=== PATIENT | male | born 1955 | race Two or more races ===

== ENCOUNTER 2024-05-30 08:30 | Inpatient (IN) | payer OTHER ==
[~2024-05-30] VITALS: Ht 185.4 cm; Wt 77.1 kg
[2024-05-30] MEDS ORDERED: PLAVIX75 MG PO (09:01)
[2024-05-30] MEDS ORDERED: ABATINEX680 MG PO (09:01)
[2024-05-30] MEDS ORDERED: CARVEDILOL ER40 MG PO (09:02)
[2024-05-30] MEDS ORDERED: ATORVASTATIN CA80 MG PO (09:03)
[2024-05-30] MEDS ORDERED: LOTENSIN HCT 11 EACH PO (09:04)
[2024-05-30] MEDS ORDERED: ETODOLAC300 MG PO (09:04)
[2024-05-30] MEDS ORDERED: TRIJARDY XR 121 EACH PO (09:05)
[2024-05-30] MEDS ORDERED: PEPCID AC20 MG PO (09:05)
[2024-05-30] MEDS ORDERED: KETOROLAC TROMETHAMINE 60 MG VIAL IM ONE ×2 (09:44→09:45)
[2024-05-30] MEDS ORDERED: TAMSULOSIN HCL 0.4 MG CAP PO ONE ×2 (09:44→09:45)
[2024-05-30] MEDS ORDERED: FAMOtidine 10 MG/ML (4ML VIAL) IV ONE (09:45)
[2024-05-30] MEDS ORDERED: FAMOTIDINE/PF 20 MG/2 ML VIAL ONE ×2 (09:45→17:25)
[2024-05-30] MEDS ORDERED: CEFTRIAXONE SODIUM 1,000 MG VIAL IV ONE (09:45)
[2024-05-30 10:19] LABS: HEMATOCRIT 34.9 % (39.0-48.0); HEMOGLOBIN 11.7 g/dL (13-16.00); MEAN CELL VOLUME 86.9 fL (80.0-100.00); MEAN CORPUSCULAR HEMOGLOBIN 29.2 pg (27.00-32.0); MEAN CORPUSCULAR HGB CONC 33.7 g/dl (32.0-36.0); PLATELET COUNT 150 K/uL (150-450); RED BLOOD COUNT 4.02 M/uL (4.00-6.00); RED CELL DISTRIBUTION WIDTH 13.7 % (11.5-14.5)
[2024-05-30 10:48] LABS: INR 0.98; PROTHROMBIN TIME 10.7 SECONDS (9.0-11.5)
[2024-05-30 11:17] LABS: PH,URINE 5.5 (5.0-8.0); URINE APPEARANCE Clear; URINE BILIRRUBIN Negative (NEGATIVE); URINE BLOOD Negative; URINE COLOR Yellow; URINE KETONE Negative (NEGATIVE); URINE LEUKOCYTE Negative; URINE NITRATE Negative; URINE PROTEIN Negative (NEGATIVE); URINE UROBILINOGEN 0.2 E.U./dl
[2024-05-30 11:20] LABS: URINE BACTERIA 4.8 uL (0.0-1933)
[2024-05-30 11:24] LABS: URINE EPITHELIAL CELLS 0.7 uL (0.0-38.8); URINE GLUCOSE >=1000 MG/DL (NEGATIVE); URINE RBC 1.7 uL (0.0-20.8); URINE WBC 1.1 uL (0.0-23.2)
[2024-05-30 11:32] LABS: BILIRUBIN TOTAL 0.82 mg/dL (0.3-1.2); CALCIUM 8.5 mg/dL (8.5-10.1); CREATININE SERUM 1.41 mg/dL (0.70-1.30); GFR 49.84; GLOBULINA 4.3 G/DL (2.4-3.5); POTASSIUM 4.48 mEq/L (3.5-5.1); TOTAL PROTEIN 7.3 gm/dL (6.4-8.2)
[2024-05-30] MEDS ORDERED: INSULIN REGULAR, HUMAN 1,000 UNIT/10 ML UNITS SUBCUTANEO ONE (12:15)
[2024-05-30] MEDS ORDERED: FAMOTIDINE/PF 20 MG in 0.9 % SODIUM CHLORIDE 8 ML IV PUSH SCH (16:47)
[2024-05-30] MEDS ORDERED: MORPHINE SULFATE 4 MG/ML VIAL IV PRN (17:00)
[2024-05-30] MEDS ORDERED: 0.9 % SODIUM CHLORIDE 1,000 ML IV SCH (17:00)
[2024-05-30] MEDS ORDERED: DEXTROSE 50 % IN WATER 0.5 G/ML DISP.SYRIN IV PRN (17:00)
[2024-05-30] MEDS ORDERED: INSULIN LISPRO 1,000 UNIT/10 ML UNITS SUBCUTANEO PRN (17:00)
[2024-05-30] MEDS ORDERED: CARVEDILOL 12.5 MG TABLET PO SCH (17:03)
[2024-05-30] MEDS ORDERED: PIPERACILLIN/TAZOBACTAM SODIUM 3.375 GM VIAL IV ONE (17:24)
[2024-05-30] MEDS ORDERED: PIPERACILLIN/TAZOBACTAM SODIUM 3.375 GM in 0.9 % SODIUM CHLORIDE 100 ML IV SCH (18:00)
[2024-05-30] MEDS ORDERED: MORPHINE SULFATE 2 MG/ML CARTRIDGE IV PRN (18:15)
[2024-05-30 18:50] VITALS: BP 115/71; O2SAT 97
[2024-05-31 02:19] VITALS: BP 107/64; O2SAT 97
[2024-05-31 08:00] VITALS: BP 110/68; O2SAT 97
[2024-05-31 16:00] VITALS: BP 103/65; O2SAT 96
[2024-06-01] VITALS: BP 119/67; O2SAT 95
[2024-06-01 07:35] LABS: HEMATOCRIT 35.3 % (39.0-48.0); HEMOGLOBIN 11.9 g/dL (13-16.00); MEAN CELL VOLUME 86.7 fL (80.0-100.00); MEAN CORPUSCULAR HEMOGLOBIN 29.2 pg (27.00-32.0); MEAN CORPUSCULAR HGB CONC 33.7 g/dl (32.0-36.0); PLATELET COUNT 171 K/uL (150-450); RED BLOOD COUNT 4.07 M/uL (4.00-6.00); RED CELL DISTRIBUTION WIDTH 14.1 % (11.5-14.5)
[2024-06-01 08:00] VITALS: BP 111/64; O2SAT 96
[2024-06-01 08:09] LABS: ALBUMIN 2.8 gm/dL (3.4-5.0); BILIRUBIN TOTAL 0.67 mg/dL (0.3-1.2); BILIRUBIN,CONJUGATED 0.29 mg/dL (0.0-0.2); BILIRUBIN,UNCONJUGATED 0.38 mg/dL (0.0-0.6); CREATININE SERUM 1.26 mg/dL (0.70-1.30); GFR 56.74; GLOBULINA 4.1 G/DL (2.4-3.5); POTASSIUM 5.33 mEq/L (3.5-5.1); TOTAL PROTEIN 6.9 gm/dL (6.4-8.2)
[2024-06-01 16:00] VITALS: BP 126/77; O2SAT 96
[2024-06-02] VITALS: BP 123/65; O2SAT 96
[2024-06-02 07:23] LABS: HEMATOCRIT 34.6 % (39.0-48.0); HEMOGLOBIN 11.8 g/dL (13-16.00); MEAN CELL VOLUME 86.5 fL (80.0-100.00); MEAN CORPUSCULAR HEMOGLOBIN 29.6 pg (27.00-32.0); MEAN CORPUSCULAR HGB CONC 34.2 g/dl (32.0-36.0); PLATELET COUNT 177 K/uL (150-450); RED CELL DISTRIBUTION WIDTH 14.1 % (11.5-14.5)
[2024-06-02 07:32] LABS: ALBUMIN 2.7 gm/dL (3.4-5.0); BILIRUBIN TOTAL 0.6 mg/dL (0.3-1.2); BILIRUBIN,CONJUGATED 0.22 mg/dL (0.0-0.2); BILIRUBIN,UNCONJUGATED 0.38 mg/dL (0.0-0.6); C-REACTIVE PROTEIN 12.2 MG/DL (0.00-0.29); CALCIUM 8.4 mg/dL (8.5-10.1); CREATININE SERUM 0.94 mg/dL (0.70-1.30); GFR 79.57; GLOBULINA 4.3 G/DL (2.4-3.5); PHOSPHOROUS 2.8 mg/dL (2.5-4.9); POTASSIUM 4.66 mEq/L (3.5-5.1)
[2024-06-02 09:00] VITALS: BP 133/83; O2SAT 98
[2024-06-03] VITALS: BP 144/65; O2SAT 98
[2024-06-03 08:00] VITALS: BP 109/57; O2SAT 100
[2024-06-03 16:19] VITALS: BP 106/53; O2SAT 95
[2024-06-03] MEDS ORDERED: ISOPROPYL ALCOHOL 30 ML OUNCE TOP ONE (20:00)
[2024-06-03] MEDS ORDERED: SUGAMMADEX SODIUM 200 MG/2 ML VIAL IV ONE (22:25)
[2024-06-03] MEDS ORDERED: KETOROLAC TROMETHAMINE 30 MG VIAL IV PRN (22:30)
[2024-06-03] MEDS ORDERED: ONDANSETRON HCL 2 MG/ML VIAL IV PRN (22:30)
[2024-06-03] MEDS ORDERED: 0.9 % SODIUM CHLORIDE 1,000 ML IV SCH (23:00)
[2024-06-04] MEDS ORDERED: PIPERACILLIN/TAZOBACTAM SODIUM 3.375 GM VIAL IV ONE (00:36)
[2024-06-04] MEDS ORDERED: MORPHINE SULFATE 4 MG/ML VIAL IV PRN (02:45)
[2024-06-04 03:30] VITALS: BP 139/83; O2SAT 98
[2024-06-04 08:23] VITALS: BP 71/46; O2SAT 97
[2024-06-04] MEDS ORDERED: 0.9 % SODIUM CHLORIDE 1,000 ML IV SCH (08:30)
[2024-06-04 09:23] VITALS: BP 97/60; O2SAT 97
[2024-06-04 13:32] LABS: MEAN CELL VOLUME 87.4 fL (80.0-100.00); MEAN CORPUSCULAR HGB CONC 32.8 g/dl (32.0-36.0); PLATELET COUNT 141 K/uL (150-450); RED BLOOD COUNT 2.46 M/uL (4.00-6.00); RED CELL DISTRIBUTION WIDTH 13.7 % (11.5-14.5)
[2024-06-04 13:39] LABS: HEMATOCRIT 21.5 % (39.0-48.0); MEAN CORPUSCULAR HEMOGLOBIN 28.8 pg (27.00-32.0)
[2024-06-04 13:40] LABS: HEMOGLOBIN 7.1 g/dL (13-16.00)
[2024-06-04 14:19] LABS: ALBUMIN 2.3 gm/dL (3.4-5.0); BILIRUBIN TOTAL 0.8 mg/dL (0.3-1.2); CREATININE SERUM 2.17 mg/dL (0.70-1.30); GFR 30.3; GLOBULINA 3.8 G/DL (2.4-3.5); POTASSIUM 5.31 mEq/L (3.5-5.1); TOTAL PROTEIN 6.1 gm/dL (6.4-8.2)
[2024-06-04] MEDS ORDERED: MEROPENEM 500 MG/VIAL VIAL IV SCH (17:00)
[2024-06-04 18:00] VITALS: BP 81/48; O2SAT 97
[2024-06-04] MEDS ORDERED: NOREPINEPHRINE BITARTRATE 4 MG in DEXTROSE 5 % IN WATER 250 ML IV SCH (19:30)
[2024-06-04] MEDS ORDERED: PHYTONADIONE 10 MG/ML AMPUL IV ONE (20:15)
[2024-06-05] VITALS (8 sets, daily range): BP systolic 101–150; BP diastolic 58–73; O2SAT 96–99
[2024-06-05] MEDS ORDERED: 0.9 % SODIUM CHLORIDE 1,000 ML IV ONE (06:15)
[2024-06-05] MEDS ORDERED: CHLORHEXIDINE GLUCONATE 120 ML BOTTLE TOP ONE (11:19)
[2024-06-05 12:49] LABS: INR 1.25; PARTIAL THROMBOPLASTIN TIME 26.8 SECONDS (22.0-34.0); PROTHROMBIN TIME 13.4 SECONDS (9.0-11.5)
[2024-06-05 13:03] LABS: MEAN CELL VOLUME 85.9 fL (80.0-100.00); MEAN CORPUSCULAR HGB CONC 34.7 g/dl (32.0-36.0); RED BLOOD COUNT 2.59 M/uL (4.00-6.00); RED CELL DISTRIBUTION WIDTH 14.5 % (11.5-14.5)
[2024-06-05 13:10] LABS: MEAN CORPUSCULAR HEMOGLOBIN 29.7 pg (27.00-32.0)
[2024-06-05 13:11] LABS: HEMATOCRIT 22.3 % (39.0-48.0)
[2024-06-05 13:12] LABS: HEMOGLOBIN 7.7 g/dL (13-16.00); PLATELET COUNT 90 K/uL (150-450)
[2024-06-05 13:14] LABS: ALBUMIN 2.4 gm/dL (3.4-5.0); BILIRUBIN TOTAL 1.16 mg/dL (0.3-1.2); CALCIUM 7.5 mg/dL (8.5-10.1); GLOBULINA 4.1 G/DL (2.4-3.5); MAGNESIUM 1.7 mg/dL (1.8-2.4); PHOSPHOROUS 5.2 mg/dL (2.5-4.9); POTASSIUM 4.79 mEq/L (3.5-5.1); TOTAL PROTEIN 6.5 gm/dL (6.4-8.2)
[2024-06-05 13:50] LABS: GFR 11.73
[2024-06-05 13:51] LABS: CREATININE SERUM 4.94 mg/dL (0.70-1.30)
[2024-06-05] MEDS ORDERED: SODIUM BICARBONATE 1 MEQ/ML DISP.SYRIN 50ML IV ONE (14:15)
[2024-06-05] MEDS ORDERED: PHYTONADIONE 10 MG/ML AMPUL IV ONE (14:15)
[2024-06-05] MEDS ORDERED: AMINOCAPROIC ACID 250 MG/ML VIAL IV STA (14:36)
[2024-06-05] MEDS ORDERED: MORPHINE SULFATE 2 MG/ML CARTRIDGE IV PRN (14:48)
[2024-06-05] MEDS ORDERED: AMINOCAPROIC ACID 250 MG/ML VIAL IV SCH (16:00)
[2024-06-05] MEDS ORDERED: MEROPENEM 500 MG/VIAL VIAL IV SCH (17:00)
[2024-06-05] MEDS ORDERED: INSULIN GLARGINE,HUM.REC.ANLOG 1,000 UNITS/10 ML UNITS SUBCUTANEO SCH (21:00)
[2024-06-05] MEDS ORDERED: PANTOPRAZOLE SODIUM 40 MG/VIAL VIAL IV PUSH SCH (21:00)
[2024-06-06 01:20] VITALS: BP 132/57; O2SAT 97
[2024-06-06 04:00] VITALS: BP 138/77; O2SAT 95
[2024-06-06 07:20] VITALS: BP 130/70; O2SAT 97
[2024-06-06 08:19] LABS: HEMATOCRIT 28.3 % (39.0-48.0); MEAN CORPUSCULAR HGB CONC 33.7 g/dl (32.0-36.0); RED BLOOD COUNT 3.29 M/uL (4.00-6.00); RED CELL DISTRIBUTION WIDTH 14.9 % (11.5-14.5)
[2024-06-06 08:58] LABS: ALBUMIN 2.1 gm/dL (3.4-5.0); BILIRUBIN TOTAL 1.26 mg/dL (0.3-1.2); CALCIUM 7.2 mg/dL (8.5-10.1); GLOBULINA 3.9 G/DL (2.4-3.5); POTASSIUM 4.17 mEq/L (3.5-5.1)
[2024-06-06] MEDS ORDERED: PHYTONADIONE 10 MG/ML AMPUL IM SCH (09:00)
[2024-06-06 09:24] LABS: MEAN CORPUSCULAR HEMOGLOBIN 29.1 pg (27.00-32.0)
[2024-06-06 09:30] LABS: GFR 7.28
[2024-06-06 09:32] LABS: HEMOGLOBIN 9.6 g/dL (13-16.00); PLATELET COUNT 91 K/uL (150-450)
[2024-06-06 09:33] LABS: CREATININE SERUM 7.47 mg/dL (0.70-1.30)
[2024-06-06 12:00] VITALS: BP 127/67; O2SAT 96
[2024-06-06 15:29] VITALS: BP 128/65; O2SAT 98
[2024-06-06 20:00] VITALS: BP 125/68; O2SAT 96
[2024-06-06] MEDS ORDERED: HEPARIN SODIUM,PORCINE 5,000 UNITS/ML VIAL ONE (21:16)
[2024-06-07] VITALS (7 sets, daily range): BP systolic 127–143; BP diastolic 68–74; O2SAT 95–100
[2024-06-07 07:34] LABS: HEMATOCRIT 25.4 % (39.0-48.0); MEAN CELL VOLUME 84.4 fL (80.0-100.00); RED BLOOD COUNT 3.01 M/uL (4.00-6.00); RED CELL DISTRIBUTION WIDTH 15.6 % (11.5-14.5)
[2024-06-07 07:46] LABS: HEMOGLOBIN 8.9 g/dL (13-16.00); MEAN CORPUSCULAR HEMOGLOBIN 29.5 pg (27.00-32.0); PLATELET COUNT 95 K/uL (150-450)
[2024-06-07 07:54] LABS: CALCIUM 6.7 mg/dL (8.5-10.1); GFR 7.17; POTASSIUM 4.03 mEq/L (3.5-5.1)
[2024-06-07 08:40] LABS: CREATININE SERUM 7.57 mg/dL (0.70-1.30)
[2024-06-08 04:00] VITALS: BP 132/67; O2SAT 97
[2024-06-08] MEDS ORDERED: MORPHINE SULFATE 2 MG/ML CARTRIDGE IV PRN (04:15)
[2024-06-08 04:22] LABS: HEMATOCRIT 26.8 % (39.0-48.0); HEMOGLOBIN 9.5 g/dL (13-16.00); MEAN CELL VOLUME 84.3 fL (80.0-100.00); MEAN CORPUSCULAR HEMOGLOBIN 29.9 pg (27.00-32.0); MEAN CORPUSCULAR HGB CONC 35.5 g/dl (32.0-36.0); PLATELET COUNT 131 K/uL (150-450); RED BLOOD COUNT 3.17 M/uL (4.00-6.00); RED CELL DISTRIBUTION WIDTH 15.7 % (11.5-14.5)
[2024-06-08 04:53] LABS: ALBUMIN 1.8 gm/dL (3.4-5.0); BILIRUBIN TOTAL 0.93 mg/dL (0.3-1.2); CALCIUM 6.6 mg/dL (8.5-10.1); GFR 5.38; GLOBULINA 3.1 G/DL (2.4-3.5); POTASSIUM 3.97 mEq/L (3.5-5.1); TOTAL PROTEIN 4.9 gm/dL (6.4-8.2)
[2024-06-08 04:56] LABS: CREATININE SERUM 9.71 mg/dL (0.70-1.30)
[2024-06-08 07:18] VITALS: BP 139/71; O2SAT 98
[2024-06-08 12:20] VITALS: BP 146/710; O2SAT 100
[2024-06-08 15:24] VITALS: BP 137/74; O2SAT 100
[2024-06-08] MEDS ORDERED: MORPHINE SULFATE 4 MG/ML CARTRIDGE IV PRN (17:44)
[2024-06-08 20:01] VITALS: BP 150/80; O2SAT 97
[2024-06-08 23:38] VITALS: BP 160/82; O2SAT 98
[2024-06-09 04:00] VITALS: BP 154/75; O2SAT 99
[2024-06-09 06:55] LABS: HEMATOCRIT 27.3 % (39.0-48.0); HEMOGLOBIN 9.6 g/dL (13-16.00); MEAN CELL VOLUME 84.7 fL (80.0-100.00); MEAN CORPUSCULAR HEMOGLOBIN 29.9 pg (27.00-32.0); MEAN CORPUSCULAR HGB CONC 35.4 g/dl (32.0-36.0); PLATELET COUNT 155 K/uL (150-450); RED BLOOD COUNT 3.22 M/uL (4.00-6.00); RED CELL DISTRIBUTION WIDTH 15.5 % (11.5-14.5)
[2024-06-09 07:21] VITALS: BP 154/78; O2SAT 97
[2024-06-09 07:46] LABS: ALBUMIN 1.8 gm/dL (3.4-5.0); BILIRUBIN TOTAL 1.51 mg/dL (0.3-1.2); GFR 4.51; GLOBULINA 3.4 G/DL (2.4-3.5); POTASSIUM 4.19 mEq/L (3.5-5.1); TOTAL PROTEIN 5.2 gm/dL (6.4-8.2)
[2024-06-09 07:50] LABS: CREATININE SERUM 11.3 mg/dL (0.70-1.30)
[2024-06-09 07:51] LABS: CALCIUM 6.8 mg/dL (8.5-10.1)
[2024-06-09 12:03] VITALS: BP 146/76; O2SAT 100
[2024-06-09 15:13] VITALS: BP 139/77; O2SAT 99
[2024-06-09 20:00] VITALS: BP 136/78; O2SAT 100
[2024-06-09] MEDS ORDERED: HEPARIN SODIUM,PORCINE 5,000 UNITS/ML VIAL SPEPROC ONE (20:30)
[2024-06-09] MEDS ORDERED: HEPARIN SODIUM,PORCINE 5,000 UNITS/ML VIAL ONE (20:30)
[2024-06-09 23:41] VITALS: BP 151/73; O2SAT 100
[2024-06-10 04:06] VITALS: BP 145/76; O2SAT 98
[2024-06-10 07:44] VITALS: BP 141/70; O2SAT 99
[2024-06-10 08:29] LABS: HEMATOCRIT 26.7 % (39.0-48.0); HEMOGLOBIN 9.2 g/dL (13-16.00); MEAN CELL VOLUME 85.9 fL (80.0-100.00); MEAN CORPUSCULAR HEMOGLOBIN 29.5 pg (27.00-32.0); MEAN CORPUSCULAR HGB CONC 34.4 g/dl (32.0-36.0); PLATELET COUNT 149 K/uL (150-450); RED BLOOD COUNT 3.11 M/uL (4.00-6.00); RED CELL DISTRIBUTION WIDTH 15.7 % (11.5-14.5)
[2024-06-10 09:09] LABS: CALCIUM 7.4 mg/dL (8.5-10.1); GFR 5.4; POTASSIUM 4.64 mEq/L (3.5-5.1)
[2024-06-10 09:21] LABS: CREATININE SERUM 9.67 mg/dL (0.70-1.30)
[2024-06-10 12:00] VITALS: BP 139/73; O2SAT 100
[2024-06-10 16:33] VITALS: BP 133/66; O2SAT 100
[2024-06-10 18:00] VITALS: BP 149/81; O2SAT 96
[2024-06-11 00:29] VITALS: BP 120/70
[2024-06-11 07:18] LABS: ALBUMIN 1.6 gm/dL (3.4-5.0); BILIRUBIN TOTAL 1.09 mg/dL (0.3-1.2); CALCIUM 7.2 mg/dL (8.5-10.1); GFR 5.02; GLOBULINA 3.2 G/DL (2.4-3.5); POTASSIUM 4.35 mEq/L (3.5-5.1); TOTAL PROTEIN 4.8 gm/dL (6.4-8.2)
[2024-06-11 08:03] LABS: CREATININE SERUM 10.3 mg/dL (0.70-1.30)
[2024-06-11 08:45] VITALS: BP 127/79; O2SAT 93
[2024-06-11] MEDS ORDERED: INSULIN LISPRO 1,000 UNIT/10 ML UNITS SUBCUTANEO SCH (11:00)
[2024-06-11 15:24] LABS: CALCIUM 7.3 mg/dL (8.5-10.1); GFR 4.75; POTASSIUM 4.44 mEq/L (3.5-5.1)
[2024-06-11 16:02] LABS: CREATININE SERUM 10.8 mg/dL (0.70-1.30)
[2024-06-11] MEDS ORDERED: HEPARIN SODIUM,PORCINE 5,000 UNITS/ML VIAL ONE (17:14)
[2024-06-11] MEDS ORDERED: HEPARIN SODIUM,PORCINE 5,000 UNITS/ML VIAL IV NR (17:30)
[2024-06-11 17:36] VITALS: BP 141/78; O2SAT 97
[2024-06-11] MEDS ORDERED: MORPHINE SULFATE 2 MG/ML CARTRIDGE IV PRN (18:00)
[2024-06-11] MEDS ORDERED: INSULIN GLARGINE,HUM.REC.ANLOG 1,000 UNITS/10 ML UNITS SUBCUTANEO SCH (21:00)
[2024-06-11 23:57] LABS: INR 1.11; PARTIAL THROMBOPLASTIN TIME 33.4 SECONDS (22.0-34.0)
[2024-06-12] VITALS: BP 116/67; O2SAT 95
[2024-06-12 05:16] LABS: HEMATOCRIT 24.1 % (39.0-48.0); MEAN CELL VOLUME 85.4 fL (80.0-100.00); MEAN CORPUSCULAR HGB CONC 34.5 g/dl (32.0-36.0); PLATELET COUNT 171 K/uL (150-450); RED BLOOD COUNT 2.82 M/uL (4.00-6.00); RED CELL DISTRIBUTION WIDTH 15.6 % (11.5-14.5)
[2024-06-12 05:22] LABS: HEMOGLOBIN 8.3 g/dL (13-16.00); MEAN CORPUSCULAR HEMOGLOBIN 29.4 pg (27.00-32.0)
[2024-06-12 05:45] LABS: ALBUMIN 1.7 gm/dL (3.4-5.0); BILIRUBIN TOTAL 1.04 mg/dL (0.3-1.2); CALCIUM 7.1 mg/dL (8.5-10.1); GLOBULINA 3.4 G/DL (2.4-3.5); MAGNESIUM 1.9 mg/dL (1.8-2.4); PHOSPHOROUS 5.2 mg/dL (2.5-4.9); POTASSIUM 3.7 mEq/L (3.5-5.1); TOTAL PROTEIN 5.1 gm/dL (6.4-8.2)
[2024-06-12 08:17] VITALS: BP 145/87
[2024-06-12 08:19] LABS: C-REACTIVE PROTEIN 14.7 MG/DL (0.00-0.29); GFR 5.88
[2024-06-12 08:21] LABS: CREATININE SERUM 8.99 mg/dL (0.70-1.30)
[2024-06-12] MEDS ORDERED: ACETAMINOPHEN 325 MG TABLET PO PRN (14:15)
[2024-06-12 16:55] VITALS: BP 172/92; O2SAT 96
[2024-06-13] VITALS: BP 142/81; O2SAT 95
[2024-06-13 03:24] LABS: CALCIUM 7.1 mg/dL (8.5-10.1); GFR 5.77; POTASSIUM 3.96 mEq/L (3.5-5.1)
[2024-06-13 03:34] LABS: CREATININE SERUM 9.13 mg/dL (0.70-1.30)
[2024-06-13 03:35] LABS: HEMATOCRIT 24.1 % (39.0-48.0); MEAN CELL VOLUME 85.4 fL (80.0-100.00); MEAN CORPUSCULAR HGB CONC 34.2 g/dl (32.0-36.0); PLATELET COUNT 193 K/uL (150-450); RED BLOOD COUNT 2.83 M/uL (4.00-6.00); RED CELL DISTRIBUTION WIDTH 15.4 % (11.5-14.5)
[2024-06-13 03:36] LABS: HEMOGLOBIN 8.2 g/dL (13-16.00); MEAN CORPUSCULAR HEMOGLOBIN 28.9 pg (27.00-32.0)
[2024-06-13] MEDS ORDERED: CARVEDILOL 12.5 MG TABLET PO SCH (09:00)
[2024-06-13 09:11] VITALS: BP 153/85
[2024-06-13 16:53] VITALS: BP 128/72; O2SAT 96
[2024-06-13] MEDS ORDERED: HEPARIN SODIUM,PORCINE 5,000 UNITS/ML VIAL IV NR (20:00)
[2024-06-13 21:57] LABS: HEMATOCRIT 31.1 % (39.0-48.0); HEMOGLOBIN 10.4 g/dL (13-16.00); MEAN CELL VOLUME 85.7 fL (80.0-100.00); MEAN CORPUSCULAR HEMOGLOBIN 28.5 pg (27.00-32.0); MEAN CORPUSCULAR HGB CONC 33.3 g/dl (32.0-36.0); PLATELET COUNT 154 K/uL (150-450); RED BLOOD COUNT 3.64 M/uL (4.00-6.00)
[2024-06-14 02:11] VITALS: BP 144/75
[2024-06-14 08:52] VITALS: BP 136/75
[2024-06-14] MEDS ORDERED: AMINO ACIDS 1 EACH TABLET PO SCH (09:00)
[2024-06-14 15:59] VITALS: BP 147/87; O2SAT 98
[2024-06-15 02:23] VITALS: BP 134/74; O2SAT 95
[2024-06-15 08:56] VITALS: BP 156/84; O2SAT 95
[2024-06-15 17:35] VITALS: BP 137/68; O2SAT 97
[2024-06-16 02:20] VITALS: BP 153/73
[2024-06-16 06:11] LABS: HEMATOCRIT 27.3 % (39.0-48.0); HEMOGLOBIN 9.4 g/dL (13-16.00); MEAN CELL VOLUME 84.5 fL (80.0-100.00); MEAN CORPUSCULAR HEMOGLOBIN 29.2 pg (27.00-32.0); MEAN CORPUSCULAR HGB CONC 34.6 g/dl (32.0-36.0); PLATELET COUNT 180 K/uL (150-450); RED BLOOD COUNT 3.23 M/uL (4.00-6.00); RED CELL DISTRIBUTION WIDTH 15.3 % (11.5-14.5)
[2024-06-16 07:13] LABS: ALBUMIN 1.8 gm/dL (3.4-5.0); BILIRUBIN TOTAL 0.63 mg/dL (0.3-1.2); CALCIUM 7.3 mg/dL (8.5-10.1); GFR 7.74; GLOBULINA 3.5 G/DL (2.4-3.5); MAGNESIUM 1.7 mg/dL (1.8-2.4); POTASSIUM 4.45 mEq/L (3.5-5.1); TOTAL PROTEIN 5.3 gm/dL (6.4-8.2)
[2024-06-16 08:11] LABS: CREATININE SERUM 7.08 mg/dL (0.70-1.30)
[2024-06-16] MEDS ORDERED: CARVEDILOL 25 MG TABLET PO SCH (09:00)
[2024-06-16 09:18] VITALS: BP 146/76; O2SAT 96
[2024-06-16 16:26] VITALS: BP 142/76; O2SAT 96
[2024-06-16 20:30] LABS: TP PLEURAL FLUID 2.3 g/dl
[2024-06-16 20:43] LABS: PLEURAL FLUID APPEARANCE CLOUDY; PLEURAL FLUID COLOR XANTHOCROMIC
[2024-06-16 21:04] LABS: MONONUCLEAR 96 %; POLYMORPHONUCLEAR 4 %
[2024-06-17 01:02] VITALS: BP 137/78; O2SAT 97
[2024-06-17 07:42] LABS: CALCIUM 7.6 mg/dL (8.5-10.1); GFR 8.54; POTASSIUM 4.86 mEq/L (3.5-5.1)
[2024-06-17 07:50] LABS: CREATININE SERUM 6.5 mg/dL (0.70-1.30)
[2024-06-17] MEDS ORDERED: SODIUM CHLORIDE 0.45 % 1,000 ML IV SCH (08:45)
[2024-06-17 09:12] VITALS: BP 128/72; O2SAT 94
[2024-06-17 17:51] VITALS: BP 117/62; O2SAT 96
[2024-06-18 01:14] VITALS: BP 113/58; O2SAT 99
[2024-06-18 05:10] LABS: ALBUMIN 1.7 gm/dL (3.4-5.0); MAGNESIUM 1.5 mg/dL (1.8-2.4); PHOSPHOROUS 5.5 mg/dL (2.5-4.9); POTASSIUM 4.18 mEq/L (3.5-5.1)
[2024-06-18 05:24] LABS: GFR 10.86
[2024-06-18 05:25] LABS: CALCIUM 6.4 mg/dL (8.5-10.1); CREATININE SERUM 5.28 mg/dL (0.70-1.30)
[2024-06-18 09:18] VITALS: BP 121/63; O2SAT 94
[2024-06-18 16:58] VITALS: BP 136/72; O2SAT 98
[2024-06-18] MEDS ORDERED: MEROPENEM 500 MG/VIAL VIAL IV SCH (17:00)
[2024-06-18] MEDS ORDERED: VANCOMYCIN HCL 1,000 MG VIAL IV NR (18:00)
[2024-06-19 01:12] VITALS: BP 121/57
[2024-06-19 05:42] LABS: MEAN CELL VOLUME 86.1 fL (80.0-100.00); MEAN CORPUSCULAR HGB CONC 33.1 g/dl (32.0-36.0); PLATELET COUNT 135 K/uL (150-450)
[2024-06-19 05:44] LABS: HEMOGLOBIN 8.3 g/dL (13-16.00); MEAN CORPUSCULAR HEMOGLOBIN 28.6 pg (27.00-32.0)
[2024-06-19 06:31] LABS: ALBUMIN 1.8 gm/dL (3.4-5.0); BILIRUBIN TOTAL 0.71 mg/dL (0.3-1.2); GLOBULINA 3.6 G/DL (2.4-3.5); MAGNESIUM 1.6 mg/dL (1.8-2.4); PHOSPHOROUS 5.5 mg/dL (2.5-4.9); POTASSIUM 4.7 mEq/L (3.5-5.1); TOTAL PROTEIN 5.4 gm/dL (6.4-8.2)
[2024-06-19 06:51] LABS: GFR 12.7
[2024-06-19 06:52] LABS: CREATININE SERUM 4.61 mg/dL (0.70-1.30)
[2024-06-19 06:53] LABS: CALCIUM 6.5 mg/dL (8.5-10.1)
[2024-06-19 08:56] VITALS: BP 107/62
[2024-06-19 16:39] VITALS: BP 109/65; O2SAT 98
[2024-06-19] MEDS ORDERED: TRAMADOL HCL 50 MG TABLET PO ONE (23:15)
[2024-06-20 00:27] VITALS: BP 148/78; O2SAT 93
[2024-06-20 07:29] LABS: ALBUMIN 1.9 gm/dL (3.4-5.0); PHOSPHOROUS 4.3 mg/dL (2.5-4.9); POTASSIUM 4.49 mEq/L (3.5-5.1)
[2024-06-20 08:25] LABS: GFR 14.96
[2024-06-20 08:26] LABS: CALCIUM 6.5 mg/dL (8.5-10.1)
[2024-06-20 08:55] VITALS: BP 129/75; O2SAT 95
[2024-06-20] MEDS ORDERED: CLONAZEPAM 0.5 MG TABLET PO STA (12:45)
[2024-06-20 16:47] VITALS: BP 123/70; O2SAT 95
[2024-06-20] MEDS ORDERED: CLONAZEPAM 0.5 MG TABLET PO SCH (21:00)
[2024-06-21 01:21] VITALS: BP 118/64; O2SAT 18
[2024-06-21 07:40] LABS: ALBUMIN 1.7 gm/dL (3.4-5.0); CALCIUM 6.7 mg/dL (8.5-10.1); CREATININE SERUM 3.36 mg/dL (0.70-1.30); GFR 18.3; POTASSIUM 4.59 mEq/L (3.5-5.1)
[2024-06-21 07:45] LABS: CALCIUM 6.6 mg/dL (8.5-10.1); CREATININE SERUM 3.36 mg/dL (0.70-1.30); GFR 18.3; POTASSIUM 4.64 mEq/L (3.5-5.1)
[2024-06-21 08:06] LABS: MEAN CORPUSCULAR HGB CONC 33.4 g/dl (32.0-36.0); PLATELET COUNT 130 K/uL (150-450); RED BLOOD COUNT 2.72 M/uL (4.00-6.00)
[2024-06-21 09:05] LABS: HEMATOCRIT 23.4 % (39.0-48.0); HEMOGLOBIN 7.8 g/dL (13-16.00); MEAN CORPUSCULAR HEMOGLOBIN 28.6 pg (27.00-32.0)
[2024-06-21 09:38] VITALS: BP 143/64; O2SAT 97
[2024-06-21] MEDS ORDERED: LACTOBACILLUS ACIDOPHILUS 1 CAP CAP PO SCH (13:00)
[2024-06-21 15:57] VITALS: BP 136/80; O2SAT 94
[2024-06-21] MEDS ORDERED: FAMOTIDINE/PF 20 MG/2 ML VIAL IV SCH (17:00)
[2024-06-22 01:59] VITALS: BP 124/64; O2SAT 94
[2024-06-22 08:50] VITALS: BP 132/65; O2SAT 97
[2024-06-22 10:31] LABS: HEMOGLOBIN 10.1 g/dL (13-16.00); MEAN CORPUSCULAR HEMOGLOBIN 28.7 pg (27.00-32.0); MEAN CORPUSCULAR HGB CONC 33.7 g/dl (32.0-36.0); PLATELET COUNT 158 K/uL (150-450); RED BLOOD COUNT 3.53 M/uL (4.00-6.00); RED CELL DISTRIBUTION WIDTH 14.9 % (11.5-14.5)
[2024-06-22] MEDS ORDERED: VANCOMYCIN HCL 1,000 MG VIAL IV SCH (14:30)
[2024-06-22 17:31] VITALS: BP 135/74; O2SAT 95
[2024-06-23 01:26] VITALS: BP 139/78; O2SAT 92
[2024-06-23 07:23] LABS: CALCIUM 6.9 mg/dL (8.5-10.1); CREATININE SERUM 2.43 mg/dL (0.70-1.30); GFR 26.59; POTASSIUM 4.47 mEq/L (3.5-5.1)
[2024-06-23 08:22] VITALS: BP 139/71
== END 2024-06-23 13:07 | disposition home or self-care (01) | DRG 417 ==
LOC: ER 08:33 → SURH 17:02 → SEC-K 17:02 → SURH 17:33 → ICU 06-05 02:19 → MEDI 06-10 16:59
PROVIDERS: General Practice; Internal Medicine; Internal Medicine Infectious Disease; Internal Medicine Nephrology; Radiology Vascular & Interventional Radiology; Surgery; ADMIT Student in an Organized Health Care Education/Training Program; ATTEND Student in an Organized Health Care Education/Training Program
PROC: BW21YZZ Computerized Tomography (CT Scan) of Abdomen and Pelvis using Other Contrast (ICD-10-PCS; 2024-05-30)
PROC: BW40ZZZ Ultrasonography of Abdomen (ICD-10-PCS; 2024-05-31)
PROC: CF2YYZZ Tomographic (Tomo) Nuclear Medicine Imaging of Hepatobiliary System and Pancreas using Other Radionuclide (ICD-10-PCS; 2024-06-02)
PROC: 0WQF4ZZ Repair Abdominal Wall, Percutaneous Endoscopic Approach (ICD-10-PCS; 2024-06-03)
PROC: 0FT44ZZ Resection of Gallbladder, Percutaneous Endoscopic Approach (ICD-10-PCS; principal; 2024-06-03 20:45)
PROC: 30233N1 Transfusion of Nonautologous Red Blood Cells into Peripheral Vein, Percutaneous Approach (ICD-10-PCS; 2024-06-04)
PROC: 30233L1 Transfusion of Nonautologous Fresh Plasma into Peripheral Vein, Percutaneous Approach (ICD-10-PCS; 2024-06-05)
PROC: 30233K1 Transfusion of Nonautologous Frozen Plasma into Peripheral Vein, Percutaneous Approach (ICD-10-PCS; 2024-06-05)
PROC: 06HM33Z Insertion of Infusion Device into Right Femoral Vein, Percutaneous Approach (ICD-10-PCS; 2024-06-06)
PROC: 5A1D70Z Performance of Urinary Filtration, Intermittent, Less than 6 Hours Per Day (ICD-10-PCS; 2024-06-06)
PROC: BW21ZZZ Computerized Tomography (CT Scan) of Abdomen and Pelvis (ICD-10-PCS; 2024-06-08)
PROC: 5A1D70Z Performance of Urinary Filtration, Intermittent, Less than 6 Hours Per Day (ICD-10-PCS; 2024-06-09)
PROC: BH4BZZZ Ultrasonography of Chest Wall (ICD-10-PCS; 2024-06-10)
PROC: 5A1D70Z Performance of Urinary Filtration, Intermittent, Less than 6 Hours Per Day (ICD-10-PCS; 2024-06-11)
PROC: 5A1D70Z Performance of Urinary Filtration, Intermittent, Less than 6 Hours Per Day (ICD-10-PCS; 2024-06-13)
PROC: 0W993ZX Drainage of Right Pleural Cavity, Percutaneous Approach, Diagnostic (ICD-10-PCS; 2024-06-16)
PROC: BH4BZZZ Ultrasonography of Chest Wall (ICD-10-PCS; 2024-06-16)
PROC: 0W9B30Z Drainage of Left Pleural Cavity with Drainage Device, Percutaneous Approach (ICD-10-PCS; 2024-06-17)
PROC: 06PYX3Z Removal of Infusion Device from Lower Vein, External Approach (ICD-10-PCS; 2024-06-19)
DX: K81.0 Acute cholecystitis (principal); N17.0 Acute kidney failure with tubular necrosis; T80.211A Bloodstream infection due to central venous catheter, initial encounter; T81.19XA Other postprocedural shock, initial encounter; N17.9 Acute kidney failure, unspecified; J90 Pleural effusion, not elsewhere classified; K43.9 Ventral hernia without obstruction or gangrene; E11.8 Type 2 diabetes mellitus with unspecified complications; Z79.4 Long term (current) use of insulin; D69.6 Thrombocytopenia, unspecified; I25.10 Atherosclerotic heart disease of native coronary artery without angina pectoris; I10 Essential (primary) hypertension; I95.81 Postprocedural hypotension; G47.33 Obstructive sleep apnea (adult) (pediatric); E78.5 Hyperlipidemia, unspecified; Z95.1 Presence of aortocoronary bypass graft; B96.83 Acinetobacter baumannii as the cause of diseases classified elsewhere; B95.7 Other staphylococcus as the cause of diseases classified elsewhere